=== PATIENT | male | born 1990 | race Caucasian/White ===

== ENCOUNTER 2020-06-21 01:20 | Emergency (ER) | payer SELFPAY ==
--- NOTE | 2020-06-21 01:31 | XRR_ITS ---
PROCEDURE INFORMATION: Exam: XR Left Shoulder Exam date and time: 06/21/2020 1:32 AM Age: 30 years old Clinical indication: Injury or trauma; Fall; Initial encounter; Blunt trauma (contusions or hematomas; Shoulder; Left; Additional info: Fall/trauma/pain TECHNIQUE: Imaging protocol: XR Left shoulder. Views: 2 or more views. COMPARISON: No relevant prior studies available. FINDINGS: Bones/joints: There is a displaced fracture of the left clavicle. The proximal fracture fragment is elevated relative to the distal fracture fragment. The fracture fragments are overriding by approximately 3 cm. The AC joint, shoulder, scapula and visible ribs are unremarkable. Lungs: The visible portion of the left lung is clear. Soft tissues: Extrathoracic soft tissues are unremarkable. XR/XR shoulder LT min 2V* [id number] IMPRESSION: Displaced distal left clavicle fracture.
[2020-06-21 01:32] VITALS: BP 139/87; PULSE 92; RESP 16; TEMP 36.4; O2SAT 99; BMI 27.7
--- NOTE | 2020-06-21 01:36 | ED_ITS ---
HPI - Extremity Injury (Upper) General: Chief Complaint: Fall Stated Complaint: fall/poss broken collar bone Time Seen by Provider: 06/21/20 01:22 Source: patient Mode of arrival: ambulatory Limitations: no limitations History of Present Illness: HPI narrative: Patient is a 30-year-old male who presents to ED today with a complaint of pain to his left clavicle following a fall. Patient tells me he accidentally fell onto the left shoulder. He denies any other injury sustained during the fall. Denies striking his head or LOC. He denies neck or back pain. Patient is ambulatory without difficulty. He denies any numbness, tingling, loss of sensation to the left extremity. MD complaint: injury to: left and shoulder Onset (ago): hour(s) Other Extremity Injury: Left: shoulder Other injuries: none Place: home Severity: moderate Relieving factors: immobilization Exacerbating factors: movement of extremity Context: fall Associated symptoms: Reports no associated symptoms; Denies neck pain or weakness in extremities Review of Systems Eyes: Denies: change in vision Card: Denies: chest pain Resp: Denies: dyspnea GI: Denies: abdominal pain Musc: Reports: joint pain (L shoulder ); Denies: neck pain, back pain, extremity pain, extremity swelling or joint swelling Neuro: Denies: headache(s), numbness in extremities, weakness in extremities or sensory changes [facility] ED PFSH: Social History (Updated 06/21/20 @ 01:40 by Markos Sidhu RN) Smoking and tobacco status: current every day smoker cigarettes Packs smoked per day: 0.5 Alcohol intake: current Alcohol intake frequency: few times a month Alcohol type: beer Last alcohol use date: 06/21/20 Substance/Drug Use: never Physical Exam Const: COMMON NORMALS: no acute distress, average body habitus, patient oriented x3, no limitations, healthy appearing, alert and well nourished GENERAL APPEARANCE: cooperative ORIENTATION/CONSCIOUSNESS: Yes oriented to person, Yes oriented to place and Yes oriented to time OTHER: mildly intoxicated HENMT: COMMON NORMALS: normocephalic and atraumatic HEAD & SCALP: normocephalic and atraumatic Neck/C-Spine: COMMON NORMALS: full ROM CERVICAL SPINE: Yes cervical ROM normal, No pain with cervical ROM, No Cervical spine tenderness and No Paracervical muscle tenderness Chest: COMMONS NORMALS: normal inspection of the chest and normal palpation of entire chest wall Resp: COMMON NORMALS: normal respiratory effort and clear to auscultation bilaterally AUSCULTATION: clear to auscultation bilaterally Cardio: COMMON NORMALS: regular rate and regular rhythm RATE: regular rate RHYTHM: regular rhythm Back/Pelvis: COMMON NORMALS: thoracic and lumbar spine normal to inspection, no thoracic nor lumbar tenderness and thoraco-lumbar ROM normal Extremity: GENERAL: Yes normal exam except as noted LEFT UPPER EXTREMITY: Yes shoulder joint (fx midshaft clavicle; otherwise normal exam) Left shoulder joint: Yes ROM (decreased secondary to clavicular pain ) and Yes neurovascular exam (normal/intact) Neuro: CALLIE COMA SCALE: document GCS findings Callie coma scale eye opening: Spontaneous [place] coma scale verbal response: Orientated [place] coma scale motor response: Obey commands Callie coma scale total score: 15 COMMON NORMALS: patient oriented x3 SENSORIUM/ORIENTATION: Yes alert, Yes oriented to person, Yes oriented to place and Yes oriented to time Skin: COMMON NORMALS: no rashes or lesions noted GENERAL SKIN EXAM: no rashes or lesions noted Course Vital Signs: Vital signs: Vital Signs Temperature 97.5 F L 06/21/20 01:32 Pulse Rate 92 06/21/20 01:32 Respiratory Rate 18 06/21/20 01:51 Blood Pressure 139/87 06/21/20 01:40 Pulse Oximetry 97 06/21/20 01:40 MDM - Extremity Injury (Upper) MDM Narrative: Medical decision making narrative: will splint and have pt follow up with orthopedics Imaging Data^: XR L shoulder: My impression: mid-shaft displaced and overlapping claviclar fx Discharge Plan Discharge Patient Disposition: Home Clinical Impression: Closed fracture of left clavicle Qualifiers: Encounter type: initial encounter Clavicle location: shaft Fracture alignment: displaced Qualified Code(s): S42.022A - Displaced fracture of shaft of left clavicle, initial encounter for closed fracture Condition: Stable Prescriptions: New hydrocodone-acetaminophen 5-325 mg tablet 1 tab PO Q4H PRN (Reason: pain) Qty: 20 RF: 0 Discharge Orders: Discharge Order (Routine); Ordered 06/21/20 Ordered By: Angela Corral Patient Instructions: Fractures - Clavicle (Adult), Clavicle Fracture (ED) Activity Restrictions/Additional Instructions: As discussed case management will contact you Tuesday or Tuesday to set you up with your orthopedic appointment. Coding Level of Care Code ED Terrapin Fisher for Chg Fwd Exam Comprehensive
[2020-06-21 01:40] VITALS: BP 139/87; RESP 18; O2SAT 97
[2020-06-21 01:51] VITALS: RESP 18
[2020-06-21] MEDS: ondansetron 2 mg/ML SDV 2 mL 4 MG IM (01:51)
[2020-06-21] MEDS: morphine 4 mg/mL SDV 1 mL IM (01:51)
[2020-06-21] MEDS: HYDROcodone-acetaminophen 5-325 mg Tablet 2 TAB PO (02:04)
--- NOTE | 2020-06-23 14:37 | PC.SOCIAL ---
Discussed referral with Becca this am and they will review and call patient. Call received later by Becca and she spoke with patient who indicates he is on his way to [place] so will be seen there. He indicates did not need appt locally at this time.
== END 2020-06-21 02:11 | disposition home or self-care (01) ==
PROVIDERS: Emergency Provider Physician Assistant
DX: S42.022A Displaced fracture of shaft of left clavicle, initial encounter for closed fracture (principal); F17.210 Nicotine dependence, cigarettes, uncomplicated; W19.XXXA Unspecified fall, initial encounter
CPT/HCPCS: 12345; 73030; 96372; 99281; 99283; J2270; J2405

== ENCOUNTER 2020-07-07 12:10 | Day surgery (SDC) | payer SELFPAY ==
[2020-07-04 12:25] VITALS: BMI 26.9
[2020-07-07] VITALS (7 sets, daily range): BP systolic 134–181; BP diastolic 82–105; PULSE 79–101; RESP 14–18; TEMP 36.3–37.1; O2SAT 98–100
--- NOTE | 2020-07-07 | SCC_ITS ---
Procedure Done: Left clavicle Implants: 9 hole [place] Variax left clavicle plate 6.4 seconds of fluoroscopic guidance, for a cumulative dose of 0.63 mGy, was provided to Dr. Wild by the radiology department. C-arm images of the LEFT clavicle were saved for the patient's permanent record. KO
--- NOTE | 2020-07-07 | XR_ITS ---
WS: [id number] EXAM: FLUOROSCOPY FOR VISUALIZATION DURING OPEN REDUCTION INTERNAL FIXATION LEFT CLAVICLE FRACTURE DATE OF EXAMINATION: 07/07/2020, 1619 hours COMPARISON: Left shoulder films from 06/21/2020 HISTORY: Patient is 30 years old with displaced left mid clavicle fracture. FLUOROSCOPY TIME: 6.4 seconds. FINDINGS: Fluoroscopy provided to the orthopedic surgery service for visualization during open reduction internet e commerce specialist al fixation left clavicle fracture. Spot images show a superior fracture fixation plate and screws st abilizing a reduced mid one third clavicle fracture without malalignment or hardware complication. XR/[place] [id number] IMPRESSION: Fluoroscopy provided to the orthopedic surgery service for visualization during open reduction internal fixation left mid clavicle fracture. Intraoperative im aging show no malalignment. Dedicated post procedure imaging recommended.
--- NOTE | 2020-07-07 12:54 | ANES.PREANE2 ---
Pre-Anesthetic Assessment Pre-Anesthetic Assessment: Height/Weight: Height 1.88 m Weight 95.254 kg Temp Pulse Resp BP Pulse Ox 98.7 F 83 18 134/82 100 07/07/20 12:32 07/07/20 12:32 07/07/20 12:32 07/07/20 12:32 07/07/20 12:32 Preop Diagnosis: Left clavicle fx Proposed Procedure: Operation Date: 07/07/20 15:45 Proposed Procedures p open reduction internal fixation left clavicle shaft 05513 S42.022A(Left) - Alton Wild MD Was Beta Joaquín taken within 24 hours: N/A Social: Social History: Tobacco and No alcohol Exam: Pre-Anes Outpt Exam: alert, oriented x 3, clear to auscultation bilaterally and regular rate & rhythm Airway: Submandibular: WNL Cervical ROM: WNL MP: 2 Dentition: Full Pulmonary: Pulmonary: None reported CV/HEM: CV/HEM: None reported : : None reported Hepatic: Hepatic: None reported GI: GI: None reported Metabolic: Metabolic: None reported Musc/skel: Comments: Clavicle frx Neuropsych: Neuropsych: None reported Anesthetic Plan: ASA status: 2 Anesthesia: General PFSH Anesthesia PFSH: Social History Smoking and tobacco status: current every day smoker cigarettes Packs smoked per day: 0.5 Alcohol intake: current Alcohol intake frequency: few times a month Alcohol type: beer Last alcohol use date: 06/21/20 Data Anesthesia Cardiac Studies: No Data to Display
[2020-07-07] MEDS: sodium chloride 0.9% 1,000 ML 30 ML IV (12:55)
--- NOTE | 2020-07-07 14:55 | W.PM.OPSUD ---
Surgery/Procedure H&P Update DATE OF PROCEDURE: July 07, 2020 DATE H&P PERFORMED: 06/26/20 PREOP DIAGNOSIS: Left clavicle fx PLANNED PROCEDURE: Operation Date: 07/07/20 15:45 Proposed Procedures p open reduction internal fixation left clavicle shaft 90827 S42.022A(Left) - Alton Wild MD
[2020-07-07] MEDS: clindamycin 900 MG/50 ML PREMIX 100 MG IV (14:59)
--- NOTE | 2020-07-07 16:36 | P.OP_ITS ---
Operative Report Date of procedure: July 07, 2020 Pre-op Diagnosis: Left clavicle fx Post-op diagnosis: same Post-op Findings: Same Procedure Done: Left clavicle Implants: 9 hole [place] Variax left clavicle plate Surgeon: Alton Wild Anesthesia: General Estimated blood loss (mL): 100 Complications: None Findings: Patient had an oblique fracture of the distal diaphysis with significant displacement and a small anterior butterfly fragment Condition: stable Disposition: PACU Procedure: The patient was taken to the operating room and given 2 g of Ancef. He is prepped and draped in a soft beachchair position with his left shoulder exposed. An S-shaped incision was made over the clavicle with a scalpel blade. Dissection was carried out with electrocautery through the alto trapezial fascia to the dorsal clavicle. Initially the medial fragment was freed dorsal soft ti ssues and mobilized distally. The more inferiorly very lateral fragment was then dissected dorsally for the plate and the fracture site and into the bone exposed. Utilizing 2 lobster claw clamps the medial fragment could be brought down inferiorly and anteriorly rocks mating the bony ends. The 9 hole plate was then contoured over the dorsal clavicle. It was fixed medially and laterally with locking and nonlocking screws all with reasonable purchase. The small anterior butterfly fragment was laid in the place into the anterior clavicle. The deltopectoral fascia was closed with 0 Vicryl. The subcutaneous tissues were closed with 2-0 Vicryl. The skin was closed with skin yair. Sterile dressings were applied. The patient was placed in a sling, extubated, and taken to recovery in stable condition.
--- NOTE | 2020-07-07 16:47 | PM.PACU ---
PACU note PACU note: VSS, good pain control. Post-Anesthesia Exam: awake Disposition: discharged
[2020-07-07] MEDS: oxyCODONE-APAP 5-325 mg Tablet 1 TAB PO (17:51)
== END 2020-07-07 17:52 | disposition home or self-care (01) ==
PROVIDERS: Visit Provider Orthopaedic Surgery
PROC: (CPT 23515; principal; 2020-07-07 14:00)
DX: S42.022A Displaced fracture of shaft of left clavicle, initial encounter for closed fracture (principal); X58.XXXA Exposure to other specified factors, initial encounter; F17.210 Nicotine dependence, cigarettes, uncomplicated
CPT/HCPCS: 23515; 12345; 73000; 76000; C1713; J1100; J1580; J1885; J2405; J2704; J3010; J3490; J7030

== ENCOUNTER → 2020-08-19 14:08 | Outpatient (BNVA) | payer SELFPAY | PROVIDERS: Visit Provider Orthopaedic Surgery | DX: Z48.89 Encounter for other specified surgical aftercare (principal); S42.022A Displaced fracture of shaft of left clavicle, initial encounter for closed fracture; X58.XXXA Exposure to other specified factors, initial encounter | CPT/HCPCS: 73000 ==